=== PATIENT | female | born 1955 | race Caucasian/White ===

== ENCOUNTER → 2020-11-10 12:31 | Outpatient (CLI) | payer OTHER, SELFPAY ==
--- NOTE | 2020-11-10 12:32 | DI.US.S_ITS ---
PROCEDURE: US PELVIC COMPLETE INDICATIONS: POST-MENOPAUSAL BLEEDING TECHNIQUE: Real-time scanning was performed of the pelvic organs, with image documentation. Additional endovaginal scanning was necessary due to incomplete visualization of the adnexal and endometrial structures by transabdominal scanning. COMPARISON: None. FINDINGS: Transabdominal scanning: Limited scanning through the kidneys shows no hydronephrosis. No pathologic free abdominal or pelvic fluid. Endovaginal scanning: Uterus: Uterus is normal in size at 7.5 x 3.8 x 3.1 cm. The endometrium is ill-defined and not well visualized. 13 mm posterior intramural fibroid. Ovaries: 5 mm right ovarian cyst. Left ovary not visualized. IMPRESSION: 1. Endometrial complex is ill-defined and not well visualized. If indicated, pre and post contrast gynecologic protocol MRI could be performed for further assessment. 2. 5 mm simple right ovarian cyst. Dictated by: Saad Null [facility] Interpreted: Kaitlyn Aaron MD on 11/10/2020 at 15:48 Approved by: Kaitlyn Aaron M.D. on 11/10/2020 at 17:11
== END ==
PROVIDERS: Referring Provider Obstetrics & Gynecology; Visit Provider Obstetrics & Gynecology
DX: N95.0 Postmenopausal bleeding (principal); D25.1 Intramural leiomyoma of uterus; N83.291 Other ovarian cyst, right side
CPT/HCPCS: 76830; 76856

== ENCOUNTER → 2022-05-28 14:57 | Outpatient (CLI) | payer OTHER, SELFPAY ==
--- NOTE | 2022-05-28 | DI.ECHO.S_ITS ---
[facility] +---------+ : : [address] : : : : [id number] : : : : Phone: [phone]+ Echocardiogram Report + + :Name: NADYA JOHNSON Study Date: 05/28/2022 Height: 63 in : :[facility] ReadingLocation: Weight: 160 lb : : Gender: Female BSA: 1.8 m2 : :: 1955 Age: 67 yrs BP: 189/93 mmHg: :Reason For Study: Dyspnea : :Ordering Physician: MELANIE, : :MARLENY Wheat Performed By: Marcel Parker : :Referring: MARLENY NAVARRO : + + Interpretation Summary The ejection fraction is estimated to be 60-65%. Diastolic parameters suggest probable normal left ventricular diastolic function and normal filling pressures. The right ventricle is normal in size and function. No significant valvular abnormalities. Pulmonary artery systolic pressure is approximately 25 to 30 mmHg. Procedure: A two-dimensional transthoracic echocardiogram with color flow and Doppler was performed. The study quality was technically adequate. There is no prior echocardiogram noted for this patient. The patient was in normal sinus rhythm during the exam. Left Ventricle: The left ventricle is normal in size and wall thickness. Left ventricular systolic function is normal. The ejection fraction is estimated to be 60-65%. There are no focal wall motion abnormalities. Diastolic parameters suggest probable normal left ventricular diastolic function and normal filling pressures. Right Ventricle: The right ventricle is normal in size and function. Atria: Both atria are normal in size. The interatrial septum grossly appears intact with no obvious evidence for an atrial septal defect. Mitral Valve: The mitral valve is normal in structure and function. There is no mitral regurgitation noted. Aortic Valve: The aortic valve is trileaflet. There is no aortic valve stenosis. No aortic regurgitation is present. Tricuspid Valve: The tricuspid valve is normal in structure and function. There is trace tricuspid regurgitation. Pulmonary artery systolic pressure is approximately 25 to 30 mmHg. Pulmonic Valve: The pulmonic valve is not well seen, but is grossly normal. There is a trace or physiologic amount of pulmonic regurgitation. Great Vessels: The aortic root is normal size. The dimensions of the ascending aorta are normal. The IVC is of normal diameter and collapses greater than 50% with a sniff. This suggests a low right atrial pressure of 3 mm Hg. Pericardium/ Pleura There is no pericardial effusion. There is no pleural effusion. MMode/2D Measurements & Calculations LVIDd: 4.5 cm LVOT diam: 1.9 cm LVIDs: 3.1 cm Ao root diam: 2.6 cm FS: 31.1 % asc Aorta Diam: 3.3 cm IVSd: 0.82 cm LVPWd: 0.85 cm LV velazquez. diameter/BSA (cm/m^2): 2.6 LV sys. diameter/BSA (cm/m^2): 1.8 LA A2 area: 14.7 cm2 RA long axis: 4.2 cm LA A4 area: 15.7 cm2 RA area: 12.6 cm2 LA length (vol): 4.7 cm RA vol: 31.9 ml LA vol: 41.2 ml RA : 18.2 ml/m2 LA vol index: 23.5 ml/m2 TAPSE: 2.5 cm Doppler Measurements & Calculations Ao V2 max: 178.9 cm/sec LVOT Max Edd: 122.6 cm/sec Ao V2 mean: 122.5 cm/sec LV V1 max P.0 mmHg Ao max P.8 mmHg LV V1 VTI: 27.0 cm Ao mean P.9 mmHg JUSTIN(I,D): 2.0 cm2 Ao V2 VTI: 39.4 cm JUSTIN(V,D): 2.0 cm2 sev ratio: 0.69 JUSTIN indexed to BSA (cm^2/m^2): 1.1 MV E max edd: 85.2 cm/sec TR max edd: 238.5 cm/sec MV A max edd: 90.0 cm/sec TR max P.8 mmHg MV E/A: 0.95 Med Peak E' Edd: 7.3 cm/sec E/E' med: 11.7 Lat Peak E' Edd: 7.5 cm/sec E/E' lat: 11.3 E/e' average: 11.5 MV dec time: 0.24 sec SV(LVOT): 78.5 ml Reading Physician:03:55 PM
== END ==
PROVIDERS: PCP Physician Assistant; Referring Provider Family Medicine; Visit Provider Family Medicine
DX: R06.09 Other forms of dyspnea (principal)
CPT/HCPCS: 93306

== ENCOUNTER → 2022-06-28 11:51 | Outpatient (CLI) | payer OTHER, SELFPAY ==
[2022-06-28 12:57] LABS: COVID19 -Nasal RAPID Negative (Negative)
== END ==
PROVIDERS: PCP Family Medicine; Visit Provider Surgery
DX: Z20.822 Contact with and (suspected) exposure to COVID-19 (principal); Z01.812 Encounter for preprocedural laboratory examination
CPT/HCPCS: 87635; C9803

== ENCOUNTER 2022-06-29 08:09 | Day surgery (SDC) | payer OTHER, SELFPAY ==
[2022-06-29 08:33] VITALS: BP 151/93; PULSE 87; RESP 16; TEMP 36.7; O2SAT 96; BMI 28.3
[2022-06-29] MEDS: LACTATED RINGERS 1,000 ML 200 ML IV (08:38)
--- NOTE | 2022-06-29 09:22 | PM.HP.1 ---
History of Present Illness History of Present Illness Date Patient Seen: 06/29/22 Time Patient Seen: 09:22 Chief complaint: SDC Narrative: The patient presents for colorectal screening. She had a prior colonoscopy between 10 and 20 years ago, reportedly normal. No personal or family history of colon cancer. On further history denies any recent gastrointestinal symptoms. No nausea, vomiting, abdominal pain, loss of appetite, unexplained weight loss, change in bowel habits, diarrhea, constipation, melena, hematochezia, or bright red blood per rectum. Patient History Medical History H/O vaginal delivery Family & Social History Social History: household members spouse Tobacco & Substance use: Smoking Status Never smoker alcohol intake frequency holiday/special occasion Substance Use Type does not use Meds Home Medications and Allergies Home Medications Medication Instructions Recorded Confirmed Type hydrochlorothiazide 50 mg tablet 50 mg PO DAILY 11/06/20 06/29/22 History losartan 100 mg tablet 100 mg PO DAILY 11/06/20 06/29/22 History metoprolol tartrate 50 mg tablet 50 mg PO DAILY 11/06/20 06/29/22 History Allergies Allergy/AdvReac Type Severity Reaction Status Date / Time erythromycin base Allergy Mild Verified 06/29/22 08:22 AMOXICILLIN Allergy Mild HIVES Uncoded 06/29/22 07:18 FIBROCYCIN Allergy Mild HIVES Uncoded 06/29/22 07:18 Exam Vital Signs (past 8 hours): - 06/29/22 08:33 Temperature 98.1 F Pulse Rate 87 Respiratory Rate 16 Blood Pressure 151/93 H Pulse Oximetry 96 Oxygen Delivery Method Room Air Oxygen Delivery Method Room Air Narrative Exam Narrative: General adult woman alert oriented no acute distress Chest nonlabored respirations Extremities warm well perfused Assessment & Plan Assessment & Plan narrative: The patient requires colorectal screening and colonoscopy is recommended. Technical details were discussed. Risks, benefits, alternatives explained. Risks including but not limited to myocardial infarction, aspiration, bleeding, pain, missed lesion, incomplete examination, need for further radiographic studies, colonic perforation, and need for major abdominal surgery were discussed. All questions were answered to their satisfaction, and they are in agreement with this plan. Time Spent With Patient Critical Care time: I spent a total of [] minutes of critical care time on this patient's care today; this time is exclusive of procedural time.
[2022-06-29] MEDS: fentaNYL 250 MCG/5 ML INJ 200 MCG IV (09:43)
[2022-06-29] MEDS: MIDAZOLAM 5 MG/5 ML VIAL 7 MG IV (09:43)
--- NOTE | 2022-06-29 09:55 | PM.OP.COLON ---
Operative Date/Time/Diagnoses Date of procedure: 06/29/22 Time of procedure: 09:55 Pre-op diagnosis: Screening colonoscopy Post-op diagnosis: same Procedure & Clinicians Study performed: Colonoscopy Same procedure as scheduled: Yes Indications: Screening colonoscopy Surgeon: Blu Bella Procedure Notes Procedure in detail: Medications: Conscious sedation using 7 mg IV midazolam and 200mcg IV of fentanyl The history and physical was performed/updated and the patient is ASA class is 2. The procedure was discussed in detail with the patient. Potential risks complications including infection, bleeding, missed diagnosis, perforation, need for surgery, and were explained. Their questions were answered and informed consent was obtained. Patient was brought to the procedure room and placed standard monitoring equipment. The patient's vital signs were monitored continuously throughout the entire procedure. Prior to starting time-out was performed. The patient was placed in the left lateral recumbent position. Procedural sedation was administered. Examination began with a thorough inspection of the perianal area there was no evidence of fissures, fistulae, external hemorrhoids or cutaneous malignancy. The colonoscopy scope was then placed into the anal canal and was advanced to the cecum, which was identified by the ileocecal valve, the appendiceal orifice and the confluence of the taenia. The scope was then slowly withdrawn examining colon thoroughly in all directions, irrigating it of any residual stool. FINDINGS 1. No masses or polyps 2. Normal healthy colon The patient tolerated the procedure well. They will be discharged once criteria are met. The prep was of good/excellent quality. The withdrawl time was 6minutes. The sedation time was 22minutes. Specimen(s): none sent Complications: none Impression: Normal healthy colon Post-procedure Recommendations: Colonoscopy in 10 years Disposition: same day surgery
[2022-06-29 10:00] VITALS: BP 140/71; PULSE 78; RESP 15; TEMP 36.4; O2SAT 96
[2022-06-29 10:05] VITALS: BP 116/68; PULSE 76; RESP 14; O2SAT 95
[2022-06-29 10:10] VITALS: BP 120/67; PULSE 73; RESP 16; O2SAT 95
[2022-06-29 10:15] VITALS: BP 139/70; PULSE 87; RESP 15; O2SAT 96
[2022-06-29 10:16] VITALS: BP 150/79; PULSE 87; RESP 15; O2SAT 98
== END 2022-06-29 10:23 | disposition home or self-care (01) ==
PROVIDERS: PCP Physician Assistant; Referring Provider Surgery; Visit Provider Surgery
PROC: 0DJD8ZZ Inspection of Lower Intestinal Tract, Via Natural or Artificial Opening Endoscopic (ICD-10-PCS; CPT 45378; principal; 2022-06-29 09:15)
DX: Z12.11 Encounter for screening for malignant neoplasm of colon (principal)
CPT/HCPCS: G0121; 99152; J2250; J3010

== ENCOUNTER → 2022-10-19 15:43 | Outpatient (CLI) | payer OTHER, SELFPAY ==
--- NOTE | 2022-10-19 | DI.MRI.S_ITS ---
PROCEDURE: MR FOOT RT WO CON INDICATIONS: RT. FOOT PAIN TECHNIQUE: Noncontrast sagittal T1 spin echo and T2 fast spin echo with fat saturation, long-axis T1 spin echo and stir, short-axis T1 spin echo and T2 fast spin echo with fat saturation through the forefoot. COMPARISON: None. FINDINGS: Image quality: Excellent. Bones and joints: The hallux sesamoids appear mildly diminutive and irregular with internal edema. No sesamoid subluxation. Mild degenerative changes of the 1st metatarsophalangeal joint. The remaining osseous structures are normal in signal intensity. No intraosseous lesions. Soft tissues: The visualized plantar foot muscles demonstrate normal signal and bulk. Visualized flexor and extensor tendons appear intact, without tenosynovitis. The distal insertions of the peroneus brevis and longus tendons appear intact. The principal Lisfranc ligament appears intact. No soft tissue ganglion cysts or bursal fluid collections. Sagittal images demonstrate no evidence for plantar plate tears. IMPRESSION: Irregular appearance of the medial and lateral hallux sesamoids with internal [id number] signal is likely related to metatarsal sesamoid degenerative changes versus prior trauma or sesamoiditis. Dictated by: Garcia Romero M.D. on 10/20/2022 at 9:28 Approved by: Garcia Romero M.D. on 10/20/2022 at 9:36
== END ==
PROVIDERS: PCP Physician Assistant; Referring Provider Podiatrist; Visit Provider Podiatrist
DX: M79.671 Pain in right foot (principal)
CPT/HCPCS: 73718

== ENCOUNTER 2023-04-30 14:27 | Emergency (ER) | payer OTHER, SELFPAY ==
[2023-04-30 14:34] VITALS: BP 196/89; PULSE 78; RESP 18; TEMP 36.6; O2SAT 96; BMI 29.4
[2023-04-30 18:53] VITALS: PULSE 91; O2SAT 95
[2023-04-30 18:54] VITALS: PULSE 86; O2SAT 98
[2023-04-30 18:56] VITALS: BP 202/84; PULSE 81; O2SAT 99
[2023-04-30 19:00] VITALS: PULSE 75; O2SAT 100
--- NOTE | 2023-04-30 19:28 | ED.EPISTAXIS ---
HPI - Epistaxis General Chief complaint: Nasal Problem Stated complaint: nose bleed since 8am Time Seen by Provider: 04/30/23 19:06 Source: patient Mode of arrival: Ambulatory History of Present Illness HPI Narrative: 67F nonsmoker with history of hypertension hyperlipidemia presents at the request of the [facility] for evaluation of a nosebleed that started at about 8:00 a.m. this morning. She does not take any blood thinners and denies systemic complaints such as dizziness, weakness or lightheadedness. She denies any trauma or injury and has not recently been ill. She feels bleeding largely from the right side of her nose but when it is bleeding heavy it comes out the other side. She is been having issues off and on for least the past few weeks and has been in pursuit of an ENT consultation. She states that she has an appointment on May 11 in [place]. She had gone to the urgent care earlier today and it was thought that a polyp was noted, they had consulted with on-call ENT and were encouraged to place a rhino rocket. They do not have this device and their clinic and the patient was sent to the emergency department for definitive management Related Data Home Medications Medication Instructions Recorded Confirmed hydrochlorothiazide 50 mg tablet 25 mg PO DAILY 11/06/20 04/30/23 losartan 100 mg tablet 100 mg PO DAILY 11/06/20 04/30/23 metoprolol tartrate 50 mg tablet 50 mg PO DAILY 11/06/20 04/30/23 atorvastatin 10 mg tablet 10 mg PO QPM 04/30/23 04/30/23 biotin 10,000 mcg chewable tablet 10,000 mcg PO DAILY 04/30/23 04/30/23 (Hair, Skin and Nails (biotin)) cholecalciferol (vitamin D3) 125 250 mcg PO DAILY 04/30/23 04/30/23 mcg (5,000 unit) capsule vitamin K2 100 mcg capsule 100 mcg PO DAILY 04/30/23 04/30/23 Allergies Allergy/AdvReac Type Severity Reaction Status Date / Time erythromycin base Allergy Mild Verified 04/30/23 14:33 amoxicillin Allergy Verified 04/30/23 14:34 doxycycline [From Vibramycin] Allergy Verified 04/30/23 14:33 Review of Systems Review of Systems Narrative: GENERAL: Denies chills, fatigue, malaise, fever, sweats. HEENT: See HPI RESPIRATORY: Denies dyspnea, cough, wheezing, hemoptysis, sputum. CARDIOVASCULAR: Denies chest pain, palpitations, orthopnea, edema, GASTROINTESTINAL: Denies nausea, vomiting, abdominal pain, diarrhea, constipation, melena. : Denies dysuria, frequency, incontinence, hematuria, urinary retention. MUSCULOSKELETAL: denies weakness, joint pain, or bony pain SKIN: Denies rash, skin lesions, or other NEUROLOGIC: Denies weakness, headache, numbness, change in speech, confusion, seizures, incoordination. PSYCHIATRIC: No concerning psychosocial issues. 12 point review of systems is negative except for those stated above Patient History Medical History H/O vaginal delivery Social History household members: spouse Smoking Status: Never smoker Smoking Status: Never smoker alcohol intake frequency: 0-2 drinks per day Alcohol type: wine Substance Use Type: does not use Exam Narrative Exam Narrative: GEN: AOx3 and in mild distress EYES: Pupils are equal, round, and reactive to light and accommodation. Extraoccular muscles are intact bilaterally. There is no subconjunctival hemorrhage or exudate. ENT: Minimal bleeding in right naris with evidence of some fresh clot, there does appear to be a polyp on the right mid nasal septum, no evidence of posterior bleed, no nasal septal hematoma. CHEST: Lungs are clear to auscultation bilaterally and free of wheezes, rales, or rhonchi. Heart rate is regular rhythm, there are no murmurs, clicks, rubs, or gallops. There is no chest wall tenderness. ABD: Abdomen is soft and nontender. There is no guarding or rebound. Bowel sounds are normal in all 4 quadrants. There is no mass or organomegaly. EXT: Full painless ROM of all extremities with no loss of sensation or strength. SKIN: Warm, pink, and dry. No erythema or rash Initial Vital Signs Initial Vital Signs: Vital Signs Temperature 97.9 F 04/30/23 14:34 Pulse Rate 78 04/30/23 14:34 Respiratory Rate 18 04/30/23 14:34 Blood Pressure 196/89 H 04/30/23 14:34 Pulse Oximetry 96 04/30/23 14:34 Oxygen Delivery Method Room Air 04/30/23 14:34 Procedures Epistaxis Control Time Out Performed: Yes Nostril: right Direct Inspection: yes Clots Removed by: blowing nose Device Inserted: hemostatic balloon Device Size: 5 Patient Tolerated Procedure: well Course Orders Ordered: Discontinued Medications Benzocaine/Butamben/Tetracaine HCl (Tetracaine/Benzocaine/Butamben (Cetacaine) Bottle) 1 spray TOP NOW ONE Stop: 04/30/23 19:29 Last Admin: 04/30/23 19:34 Dose: 1 spray Documented By: PABLO Vital Signs Vital signs: Vital Signs - 8 hr 04/30/23 20:13 Blood Pressure 202/87 H MDM - Epistaxis MDM Narrative Medical decision making narrative: [67] year old patient presents with right-sided nosebleed Multiple etiologies for patient's symptoms considered including, but not limited to: [Anterior bleed versus posterior bleed versus polyp versus other] Prior Charts reviewed in our EMR Primary Historian: patient Patient's symptoms improved over duration of stay with above-stated therapies. Bleeding well controlled with rhino rocket Findings and discharge diagnosis discussed with patient/family followed by verbalization of understanding Return precautions discussed with patient/family whom verbalize understanding of diagnosis and plan Discharge Plan Departure Patient Disposition: Home Clinical Impression: Epistaxis Instructions: DI for Nosebleed Activity Restrictions/Additional Instructions: *You have been diagnosed with [ acute anterior epistaxis ] *What to do: * do not blow your nose, stick your finger in her nose, or disturb nose for the next 24 hr. If you must sneeze please sneeze out your mouth like we talked about *Follow up with your primary care provider or ENT doctor in 2-3 days, call for an appointment. Let them know you were seen in the Emergency Department and that we ask that you be seen in follow up *Return to ER if you should have any new, worsening or concerning symptoms * if you are bleeding starts again at home please place a portion of a cotton ball in your nostril and squirt some of the Afrin you were given in your nose. Apply the nose clamp and uses a watch or o'clock to time yourself for 15 min. At the end 15 min recheck for bleeding, if you continue to bleed please repeat the process for another 15 min. If at the end of 30 min you still have bleeding you should return to the emergency department Prescriptions: No Action hydrochlorothiazide 50 mg tablet 25 mg PO DAILY metoprolol tartrate 50 mg tablet 50 mg PO DAILY losartan 100 mg tablet 100 mg PO DAILY atorvastatin 10 mg tablet 10 mg PO QPM Patient Comments: take 1 tablet by mouth nightly cholecalciferol (vitamin D3) 125 mcg (5,000 unit) Capsule 250 mcg PO DAILY vitamin K2 100 mcg Capsule 100 mcg PO DAILY Hair, Skin and Nails (biotin) 10,000 mcg Tablet,Chewable 10,000 mcg PO DAILY Referrals: Sharee Patel PA-C [Primary Care Provider] - Huey Boston MD [Physician] - Stand Alone Forms: Patient Portal/API
[2023-04-30] MEDS: TRANEXAMIC ACID 1,000 MG VIAL 1000 MG (19:34)
[2023-04-30] MEDS: TETRACAINE/BENZOCAINE/BUTAMBEN (CETACAINE) BOTTLE 1 SPRAY TOP (19:34)
[2023-04-30 20:13] VITALS: BP 202/87
--- NOTE | 2023-04-30 20:20 | PC.NURSE ---
Provider notified that patient does take antihypertensives and had not taken them today d/t nose bleed resulting in elevated BP.
== END 2023-04-30 20:21 | disposition home or self-care (01) ==
PROVIDERS: Emergency Provider Emergency Medicine; PCP Physician Assistant
DX: R04.0 Epistaxis (principal)
CPT/HCPCS: 30901; 99282